=== PATIENT | female | born 1940 | race Caucasian/White ===

== ENCOUNTER → 2016-12-05 | Outpatient (CLI) | payer MEDICARE | LOC: CT 11-28 10:30 → OPSV 07:48 → CT 10:30 | DX: C85.83 Other specified types of non-Hodgkin lymphoma, intra-abdominal lymph nodes (principal); N18.3 Chronic kidney disease, stage 3 (moderate); E86.0 Dehydration | CPT/HCPCS: 71260; 74160; 96360; 96361; J7030; J7050; Q9962 ==